=== PATIENT | male | born 1950 | race Caucasian/White ===

== ENCOUNTER 2016-08-15 07:40 | Inpatient (IN) | payer OTHER, BC ==
--- NOTE | 2016-08-10 11:13 | GHP ---
[f rep st] PREOP HISTORY AND PHYSICAL DATE OF ADMISSION: 08/15/2016 PROBLEM: Right knee arthritis. HISTORY OF PRESENT ILLNESS: The patient is a 66-year-old man admitted for a right total knee arthroplasty. I did his left total hip arthroplasty in June 2015. He has had a good result. He has a long history of progressive pain in the right knee. He is having daily pain. He has been using diclofenac. 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 His activities are greatly diminished because of the pain in his right knee. PAST MEDICAL HISTORY: Overall, he is in good general health. He has gout. No history of heart disease, DVT, hepatitis, or sleep apnea. He is treated for hypertension. No history of previous serious MRSA infections. CURRENT MEDICATIONS: Acyclovir for herpes. Losartan 50 mg a day for high blood pressure. Indocin p.r.n. for gout. Diclofenac for his knee arthritis. ALLERGIES: 1. DRUG ALLERGIES: Sulindac caused him to pass out. 2. METAL ALLERGIES: None. 3. LATEX ALLERGY: None. FAMILY HISTORY: Positive for heart disease. SOCIAL HISTORY: The patient does not smoke cigarettes and occasionally drinks alcohol. 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 He is . PHYSICAL EXAMINATION: GENERAL: He is a fit appearing man. Height 5 feet 10 inches. Weight 210 pounds. BMI 30.1. EYES: The conjunctivae and sclerae are clear. Pupils are round and reactive. MOUTH: Good oral hygiene. No loose teeth. CHEST: Clear. HEART: Regular rhythm. No murmurs. EXTREMITIES: Pertinent findings limited to his right knee. He has varus alignment. A small effusion is present. He lacks 2 or 3 degrees of full extension and flexes to 105 degrees. His collateral ligaments are stable. IMAGING: Films show advanced medial compartment degenerative arthritis. He is bone on bone in the medial compartment. Peripheral osteophytes are present. He has subchondral sclerosis. Varus alignment is present. IMPRESSION ON ADMISSION: 1. Right knee advanced medial compartment degenerative arthritis with varus deformity. He is prepared for a right total knee arthroplasty. 2. Fifteen months status post successful left total knee arthroplasty. 3. Treatment for hypertension. He will undergo a right total knee arthroplasty. The surgery has been described to him including the risks, complications, expectations, and recovery time. I have stressed the importance of postoperative physical therapy. I have advised him that a small percentage of people do not get a good result with a total knee replacement. I also advised him that with bilateral procedures, there can be mild side to side differences in the recovery and in the final result. All his questions have been answered, and he consents to surgery. /[id number]/MODL MTDD
[2016-08-10 12:00] LABS: % IMMATURE GRANULYOCYTES 0.6 % (0.0-1.1); ABSOLUTE IMMATURE GRANULOCYTES 0.05 10^3/uL (0.00-0.10); ADD DIFF? NO; ADD MORPH? NO; ADD SCAN? NO; ATYPICAL LYMPHOCYTE FLAG 0 (0-99); FRAGMENT RBC FLAG 0 (0-99); HEMOGLOBIN 17.1 g/dL (13.7-17.5); LEFT SHIFT FLG 0 (0-99); LIPEMIA HEMOLYSIS FLAG 90 (0-99); MEAN CELL HEMOGLOBIN CONCENTR. 34.9 g/dL (32.4-36.7); MEAN CELL VOLUME 88.8 fL (81.5-99.8); MEAN PLATELET VOLUME 9.5 fL (8.7-11.7); PLATELET CLUMPS FLAG 0 (0-99); PLATELET COUNT 234 10^3/uL (150-400); RED BLOOD CELL COUNT 5.52 10^6/uL (4.40-6.38); RED CELL DISTRIBUTION WIDTH 12.1 % (11.5-15.2)
[~2016-08-15 07:40] MED LIST: ACETAMINOPHEN 325 MG TAB PO ONE; CEFAZOLIN 2 GM/DEXTR 100 ML IV ONE; CHLORHEXIDINE GLUC HIBICLENS 118 ML BTL TP ONE; DEXAMETHASONE 4 MG/ML VIAL IVP ONE; FAMOTIDINE 20 MG TAB PO ONE; NS IV ONE; ROPI/epiNEPH/KETOROLAC JOINT COCKTAIL IU ONE; TRANEXAMIC ACID IV ONE; ceFAZolin 1 GM/5 ML SYR ONE
[2016-08-15] MEDS ORDERED: LR 1,000 ML IV ONE (08:25)
[2016-08-15] MEDS ORDERED: DEXAMETHASONE 4 MG/ML VIAL ONE (08:31)
[2016-08-15] MEDS ORDERED: ACETAMINOPHEN 325 MG TAB ONE (08:31)
[2016-08-15] MEDS ORDERED: CEFAZOLIN 2 GM/DEXTROSE/100 ML BAG IV ONE (08:31)
[2016-08-15] MEDS ORDERED: FAMOTIDINE 20 MG TAB ONE (08:31)
[2016-08-15] MEDS ORDERED: fentaNYL 100 MCG/2 ML INJ ONE (08:52)
[2016-08-15] MEDS ORDERED: PROPOFOL/EMULSION 500 MG/50 ML BOTTLE IV ONE (08:53)
[2016-08-15] MEDS ORDERED: POVIDONE-IODINE 20 ML in SODIUM CL IRRIG SOLUTION 500 ML IRR ONE (09:30)
[2016-08-15] MEDS ORDERED: MIDAZOLAM 2 MG/2 ML VIAL ONE (09:32)
[2016-08-15] MEDS ORDERED: LIDOCAINE 2% 5 ML SDV ONE ×2 (09:46)
--- NOTE | 2016-08-15 11:33 | POSTOPPROG ---
Post Op Note Date of Operation: 08/15/16 Surgeon: Junior Reddy Medicaid Billing Specialist: Nat Anesthesiologist: Esther Anesthesia: IV Sedation, Spinal Post-op Diagnosis: right knee arthritis Procedure: right TKA Inf/Abcess present in the surg proc area at time of surgery?: No EBL: 50-100
[2016-08-15] MEDS ORDERED: ACYCLOVIR 400 MG TAB PO PRN (11:50)
[2016-08-15] MEDS ORDERED: MAGNESIUM HYDROXIDE 30 ML UDCUP PO PRN (11:51)
[2016-08-15] MEDS ORDERED: diphenhydrAMINE 25 MG CAP PO PRN (11:51)
[2016-08-15] MEDS ORDERED: CYCLOBENZAPRINE 10 MG TAB PO PRN (11:51)
[2016-08-15] MEDS ORDERED: LACTULOSE 20 GM/30 ML UDCUP PO PRN (11:51)
[2016-08-15] MEDS ORDERED: PROMETHAZINE HCL 25 MG/ML VIAL IVP PRN (11:51)
[2016-08-15] MEDS ORDERED: ONDANSETRON DISINTEGRATING 4 MG TAB PO PRN (11:51)
[2016-08-15] MEDS ORDERED: POLYETHYLENE GLYCOL 3350 17 GM PKT PO PRN (11:51)
[2016-08-15] MEDS ORDERED: BISACODYL 10 MG SUPP PR PRN (11:51)
[2016-08-15] MEDS ORDERED: DIPHENOXYLATE/ATROPINE LOMOTIL 1 TAB PO PRN (11:51)
[2016-08-15] MEDS ORDERED: PHARMACY PAIN CONSULT 1 EA MISC PRN (11:51)
[2016-08-15] MEDS ORDERED: KETOROLAC 30 MG/1 ML SDV IVP PRN (11:51)
[2016-08-15] MEDS ORDERED: METOCLOPRAMIDE 10 MG/2 ML VIAL IVP PRN (11:51)
[2016-08-15] MEDS ORDERED: NS 500 ML IV PRN (11:51)
[2016-08-15] MEDS ORDERED: PROMETHAZINE HCL 25 MG SUPPR PR PRN (11:51)
[2016-08-15] MEDS ORDERED: TEMAZEPAM 15 MG CAP PO PRN (11:51)
[2016-08-15] MEDS ORDERED: ONDANSETRON 4 MG/2 ML VIAL IVP PRN (11:51)
[2016-08-15] MEDS ORDERED: LR 1,000 ML IV SCH (12:00)
--- NOTE | 2016-08-15 12:06 | GOP ---
[f rep st] OPERATIVE REPORT DATE OF OPERATION: 08/15/2016 SURGEON: Junior Reddy MD TRAVELIFT OPERATOR: Solomon Zuniga CFA, and Mo Tyler, PAC ANESTHESIA: A combination of Marcaine spinal, IV sedation, and adductor canal block. ANESTHESIOLOGIST: Ward Santana DO. PREOPERATIVE DIAGNOSIS: Right knee severe degenerative arthritis with varus deformity. POSTOPERATIVE DIAGNOSIS: Right knee severe degenerative arthritis with varus deformity. PROCEDURE PERFORMED: 08/15/2016, a right total knee arthroplasty, cemented, Hdez and Nephew Journey II, posterior stabilized. FINDINGS: DESCRIPTION OF PROCEDURE: The patient was given 2 g of IV Ancef preoperatively within 60 minutes of surgery. He also received IV tranexamic acid at a dose of 10 mg/kg. He was placed on the operating room table and given spinal anesthesia with Marcaine by Dr. Santana. He was then placed supine a nd given IV sedation. A Garcia catheter was not used. He wore a AARON stocking and SCD on the nonopera tive leg. A bolster was placed under the right hip to prevent excessive external rotation of the rig ht leg. His right lower extremity was prepped with ChloraPrep from the upper thigh tourniquet to the tips of the toes. It was draped free using sterile sheets, stockinette, and Ioban plastic adhesive drape. The lower leg was wrapped with compressive Coban. The leg was exsanguinated with elevation a nd a 6-inch compressive wrap, and the pneumatic tourniquet was inflated to 275 mmHg. The World Health Organization time-out was performed to verify the correct patient identity and the c orrect surgical side. The Curtis time-out was also performed. The Beyond the Rackayo leg holding device was sterilely attached to the operating room table and used throughout the procedure to help position the knee. A straight midline incision made centered on the patella. Subcutaneous tissues were sharply divided, and hemostasis was obtained using electrocautery. A media l subcutaneous flap was developed, and the capsule and synovium were opened in a medial parapatellar fashion. He had a previous 3-inch medial parapatellar incision from prior surgery. I made sure to l eave an adequate bone bridge between the 2 incisions. Extensive degenerative changes were present in his medial compartment. He was eroded to his subchondral bone on the medial tibial plateau. The me dial capsule and periosteum were elevated off the rim of the medial tibial plateau all the way around to the posteromedial corner. I extensively released his medial collateral ligament off the tibia. In order to improve exposure, the patella was prepared first. The original thickness of the patella was measured. Peripheral osteophytes were removed. I cut a flat surface on the back of the patella. It was sized for a 38 mm resurfacing component. I removed enough bone from the patella such that wiliam gustafson remaining bone plus the thickness of the patellar component re-created the original thickness of wiliam gustafson patella. The composite thickness was 23 mm. The intramedullary alignment guide system was used to set up the distal femoral cut. The distal femu r was cut in 5 degrees of valgus. Because of a slight preoperative flexion contracture, I made a +2 mm cut on the distal femur. The sizing jig was used to determine proper femoral sizing. I shifted wiliam gustafson jig anteriorly 2 mm. The 5-in-1 cutting block was applied, and the anterior and posterior condyla r cuts and chamfer cuts were made. The final jig was used to remove the central portion of the dista l femur to accommodate the posterior-stabilized femoral component. I was careful to determine proper rotation by referencing off [place] line. Each cut was checked f or accuracy before and after it was made. The femur was sized for a size 7 posterior-stabilized comp onent. The trial component was tapped securely into place and was a good fit. Next, the tibia was prepared. The proximal tibial cut was made using the extramedullary alignment gu jeison system. The cut was made in a few degrees of posterior slope. I was careful to achieve proper v arus/valgus alignment. The posterior compartment was cleared of meniscal remnants. Large osteophyte s were removed from the back of his femoral condyles. I checked the flexion and extension gaps, and they were equal. The tibia was sized for a size 6 component. With the trial components in place, I selected a 9 mm po lyethylene posterior-stabilized insert. The knee came to full extension and flexed to 130 degrees. There was no overstuffing in flexion. His collateral ligament was tight in full extension. I had al ready done an extensive distal release on his medial collateral ligament. Using an 11 blade, I caref ully perforated his medial collateral ligament until I had adequate balance on the medial side of the knee. The collateral ligaments were then stable and balanced in full extension and 90 degrees of fl exion. The trial patellar button was applied, and tracking was checked. He had a slight tendency fo r lateral tracking. I did a very light lateral release. Tracking was then excellent without digital pressure. 40 mL of the joint anesthetic cocktail was injected into the posterior capsule, the periarticular str uctures, the quadriceps muscle and tendon areas, and the subcutaneous tissues along the skin edges. A 2nd dose of IV tranexamic acid was given at a dose of 10 mg/kg. The surfaces were prepared for cementing. They were carefully cleaned with the pulsating lavage irri gation and thoroughly dried. The CarboJet device was used to blow dry the cancellous surfaces. A do uble batch of methylmethacrylate cement with tobramycin was mixed. While it was still in a semiliqui d state, all [address] components were cemented in place. Excess cement was removed before it hardened. The 9 mm trial tibial insert was re-tried and was the proper thickness. The actual component was ins erted and locked into place. The knee was thoroughly irrigated one final time with a dilute Betadine solution. The tourniquet was deflated, and the total tourniquet time was 67 minutes. The vastus medialis portion of the extensor mechanism was repaired with several interrupted figure-of -eight #2 FiberWire sutures. The capsule and synovium were closed first with multiple interrupted fi [id number] 0 PDS sutures, followed by a running #2 barbed Ethicon Stratafix PDO suture. Subcutane ous tissues were closed with a running 0 barbed Ethicon Stratafix Monoderm suture. The skin was clos ed with a running 3-0 barbed Ethicon Stratafix Monoderm subcuticular suture. The skin was sealed wit h half-inch Steri-Strips. The wound was covered with Xeroform gauze and flat 4 x 4's, and the knee w as wrapped with a Kerlix and 6-inch compressive wrap. A long leg AARON stocking and SCD were applied, followed by the cooling device. The patient wore a stocking and SCD on the opposite leg during the p rocedure. I used a size 7 cemented Hdez and Nephew Oxinium posterior-stabilized femoral component, a size 6 ce mented tibial base plate, a 9 mm posterior stabilized tibial insert, and a 38 mm cemented round all-p olyethylene resurfacing patellar component. The estimated blood loss following placement of the tourniquet was about 100 cc. The sponge and needle counts were correct on 2 occasions. He was awakened from anesthesia, transferred to his hospital [facility] [facility], and taken to PACU in satisfactor y condition. There were no intraoperative complications. In the recovery room, for additional posto perative pain control, Dr. Santana administered an adductor canal block to his right lower extrem ity. Solomon Zuniga and Pawan Tyler acted as surgical assistants. Their assistance was a medical necess ity. /[id number]/MODL
--- NOTE | 2016-08-15 12:39 | DX ---
Right Knee, AP and [place] Lateral Views, 12:21 p.m. Clinical History: 66-year-old male in the PACU after a right knee arthroplasty. Comparison Studies: None currently available. Findings: The patient has undergone a tricomponent knee arthroplasty with anatomic alignment of the d istal femoral, proximal tibial, and posterior patellar components. Normal positioning of the radioluc ent spacers is seen. A pneumatic cuff is seen over the calf. There is normally-expected air within th e soft tissues seen postoperatively. There is a normal-variant fabella seen posterolaterally. Impression: Status post right knee arthroplasty, with anatomic alignment.
[2016-08-15] MEDS ORDERED: TRANEXAMIC ACID 650 MG TAB PO SCH (13:00)
[2016-08-15] MEDS ORDERED: TRANEXAMIC ACID 650 MG TAB PO ONE ×2 (14:55→15:01)
[2016-08-15] MEDS: oxyCODONE IR 5 MG TAB PO PRN ×4 (15:00→23:01)
[2016-08-15] MEDS: ACETAMINOPHEN 325 MG TAB PO SCH ×3 (15:00→23:02)
[2016-08-15] MEDS: traMADol 50 MG TAB PO PRN (17:05)
[2016-08-15] MEDS: ceFAZolin 2 GM/DEXTROSE 100 ML IV SCH (17:40)
[2016-08-15] MEDS: SENNOSIDES/DOCUSATE SODIUM TAB PO SCH (19:38)
[2016-08-15] MEDS: ASPIRIN 325 MG TAB PO SCH (19:38)
[2016-08-15] MEDS: ASCORBIC ACID 500 MG TAB PO SCH (19:38)
[2016-08-15] MEDS: FAMOTIDINE 20 MG TAB PO SCH (19:38)
[2016-08-15] MEDS: TRANEXAMIC ACID 650 MG TAB PO SCH (23:02)
[2016-08-16] MEDS: ceFAZolin 2 GM/DEXTROSE 100 ML IV SCH (02:16)
[2016-08-16] MEDS: traMADol 50 MG TAB PO PRN (02:17)
[2016-08-16 04:19] VITALS: O2SAT 96
[2016-08-16] MEDS: ACETAMINOPHEN 325 MG TAB PO SCH (05:05)
[2016-08-16 05:31] LABS: HEMATOCRIT 42.2 % (40.0-51.0); HEMOGLOBIN 14.8 g/dL (13.7-17.5)
[2016-08-16 07:42] VITALS: BP 112/69; PULSE 54; RESP 18; TEMP 97.8
[2016-08-16] MEDS: ASPIRIN 325 MG TAB PO SCH (07:52)
[2016-08-16] MEDS: oxyCODONE IR 5 MG TAB PO PRN ×2 (07:52→11:06)
[2016-08-16] MEDS: TRANEXAMIC ACID 650 MG TAB PO SCH (07:53)
[2016-08-16] MEDS: FAMOTIDINE 20 MG TAB PO SCH (07:53)
[2016-08-16] MEDS: SENNOSIDES/DOCUSATE SODIUM TAB PO SCH (07:53)
[2016-08-16] MEDS: ASCORBIC ACID 500 MG TAB PO SCH (07:54)
[2016-08-16] MEDS ORDERED: LOSARTAN POTASSIUM 50 MG TAB PO SCH (09:00)
[2016-08-16] MEDS ORDERED: FERROUS SULFATE 140 MG TAB.ER PO SCH (09:00)
[2016-08-16] MEDS ORDERED: MULTIVITAMINS 1 EACH TAB PO SCH (09:00)
--- NOTE | 2016-08-16 09:34 | SOAPPROG ---
SOAP Progress Note Assessment/Plan: Assessment: Afebrile. Moderate pain. Has been walking in room H/H is good. Films look good. Plan: PT today. Dsg change dsg. DC later today. 08/16/16 09:32 Objective: Vital Signs Temp Pulse Resp BP Pulse Ox 36.6 C 54 L 18 112/69 96 08/16/16 07:41 08/16/16 07:41 08/16/16 07:41 08/16/16 07:54 08/16/16 07:41 Laboratory Results 08/16/16 04:48 08/15/16 08/16/16 08/17/16 05:59 05:59 05:59 Intake Total 3430 350 Output Total 2550 600 Balance 880 -250 ICD10 Worksheet Patient Problems: Problems Problem Status Diagnosed Osteoarthritis of right knee Acute Primary osteoarthritis of left knee Acute
--- NOTE | 2016-08-16 09:35 | PDIAF ---
- Diagnosis Diagnosis: right knee arthritis Code Status: Full Code - Medication Management Discharge Medications: Medications to Continue on Transfer Acyclovir [Zovirax 400 mg (*)] 400 mg PO TID PRN 07/17/16 [Last Taken 03/14/16] Ascorbic Acid [Vitamin C 500 mg (*)] 500 mg PO BID 07/17/16 [Last Taken 08/07/16 ] Losartan Potassium [Cozaar 50 mg (*)] 50 mg PO DAILY 07/17/16 [Last Taken ] Multivitamins [Multivitamin (*)] 1 each PO DAILY 07/17/16 [Last Taken 08/07/16] Acetaminophen [Tylenol 325mg (*)] 650 mg PO Q6HRS #0 tab 08/16/16 [Last Taken Unknown] Aspirin [Aspirin 325 mg (*)] 325 mg PO DAILY #21 tab 08/16/16 [Last Taken Unknown] Ferrous Sulfate [Slow Fe 140 MG (*)] 140 mg PO DAILY #30 tab.er 08/16/16 [Last Taken Unknown] Ondansetron Odt [Zofran Odt 4 mg (*)] 4 mg PO Q4HRS PRN #0 tab 08/16/16 [Last Taken Unknown] oxyCODONE IR [Oxycodone Ir (*)] 5 - 10 mg PO Q3HRS PRN #0 tab 08/16/16 [Last Taken Unknown] traMADol [Ultram 50 mg (*)] 50 mg PO Q6HRS PRN #0 tab 08/16/16 [Last Taken Unknown] Discharge Medications: Refer to the Discharge Home Medication list for PRN reason. PICC Care - Routine: N/A - Orders Services needed: Home Care, Physical Therapy Home Care Face to Face: I certify that this patient was under my care and that I had the required [id number] encounter meeting the encounter requirements on the discharge day. My findings support the fact that the patient is homebound as defined in CMS Chapter 7 Medicare Benefits Manual 30.1.1, The condition of the patient is such that there exists a normal inability to leave home and consequently, leaving home would require a considerable and taxing effort. Diet Recommendation: no restrictions on diet Diet Texture: Regular Texture Diet Garcia: Not applicable Kristopher Stockings Discontinue Date: 1 week Wound Care Instructions: keep clean and dry. You may shower. Activity/Weight Bearing Restrictions: as tolerated. Additional: follow up in the office in 8-10 days as scheduled. - Follow Up Care Current Providers and Referrals: Erika Gracia MD [Primary Care Provider] - Junior Reddy MD [Medical Doctor] - 08/28/16 11:00 am
--- NOTE | 2016-08-16 09:58 | GDS ---
[f rep st] DISCHARGE SUMMARY ADMISSION DIAGNOSIS: Right knee severe degenerative arthritis with varus deformity. DISCHARGE DIAGNOSIS: Right knee severe degenerative arthritis with varus deformity. OPERATION PERFORMED: 08/15/2016, a right total knee arthroplasty. POSTOPERATIVE COMPLICATIONS: None. CONDITION ON DISCHARGE: Improved. DESCRIPTION OF HOSPITAL COURSE: The patient was admitted to the hospital on the morning of surgery. His admission CBC was normal. The same day, under a combination of Marcaine spinal, IV sedation, an d adductor canal block, he underwent a right total knee arthroplasty. Postoperatively, he had to be catheterized 1 time in the PACU. After that, he voided spontaneously. He was treated with multimoda l DVT prophylaxis including aspirin. On the 1st postoperative day, his hemoglobin and hematocrit wer e 14.8 and 42.2. He was seen by Physical Therapy and made good progress with ambulation, stairs, and knee range of motion. DISPOSITION: Patient discharged to his home. He will have home physical therapy. Continue aspirin 325 mg p.o. daily for 21 days. He may progress to full weightbearing on the right as tolerated. He has prescriptions for oxycodone and tramadol for pain control. I will see him back in the office on August 28, 2016. If there are any problems, he is to call me at the office. /[id number]/MODL
--- NOTE | 2016-08-16 10:55 | DX ---
Leg Alignment Study History: Recent knee replacement surgery Findings: There is no significant angulation of the left lower extremity with respect to the femoral and tibial shaft. There is no significant angulation of the right lower extremity. The mechanical axis on the left from the center of the femoral head to the middle of the tibial plafo nd courses through the center of the knee joint. The mechanical axis on the right courses through the center of the knee joint. Impression: Good post-operative alignment lower extremities
== END 2016-08-16 11:13 | disposition home health service (06) | DRG 470 ==
LOC: F3N 07:40
PROVIDERS: ADMIT Orthopaedic Surgery; ATTEND Orthopaedic Surgery
PROC: 0SRC0J9 Replacement of Right Knee Joint with Synthetic Substitute, Cemented, Open Approach (ICD-10-PCS; principal; 2016-08-15 09:15)
DX: M17.11 Unilateral primary osteoarthritis, right knee (principal); I10 Essential (primary) hypertension
CPT/HCPCS: 97110-GP; 97116-GP; 97161-GP; 97165-GO; 97530-GP; C1713; J0171; J0690; J1100; J1885; J2250; J2704; J2795; J3010